=== PATIENT | female | born 1930 | race Caucasian/White ===

== ENCOUNTER → 2016-05-15 | Outpatient (CLI) | payer OTHER ==
[~2016-05-15] MED LIST: ANT25 PO; ASPI81TA28 PO; ATV5X PO; CEPH500C2 PO; CRD200 PO; FURO20TA PO; GLIP10TA10 PO; LEVO125T5 PO; LISI-461 PO; LPT40 PO; LSN5 PO; METF-384 PO; MRLP17 PO; MULT-506 PO; NRV5 PO; NTRGSL/4 UT; OMEP20CA9 PO; ONDA8TAB62 SL; POTA10CA28 PO; RIVA1TAB4 PO; TPRSR50 PO
--- NOTE | 2016-05-15 16:33 | MAMMOGRAPHY REPORT ---
BILATERAL DIGITAL SCREENING MAMMOGRAM WITH CAD: 05/15/2016 CLINICAL HISTORY: Routine screening examination. TECHNIQUE: Bilateral CC and MLO views were obtained. Current study was also evaluated with a Comput er Aided Detection (CAD) system. COMPARISON: Comparison is made to exams dated: 05/02/2015 mammogram, 10/02/2012 mammogram, 10/02/2011 mammogram, 09/29/2010 mammogram, 09/28/2009 mammogram - [facility], and 09/27/2008. BREAST COMPOSITION: There are scattered areas of fibroglandular density in both breasts. FINDINGS: There are diffuse bilateral rodlike secretory calcifications and moderate vascular calcifi cations in the breasts. No suspicious mass, architectural distortion or cluster of suspicious micro calcifications is seen. IMPRESSION: ACR BI-RADS CATEGORY 1: NEGATIVE There is no mammographic evidence of malignancy. A 1 year screening mammogram is recommended. The p atient will receive written notification of the results. Approximately 10% of breast cancers are not detected with mammography. A negative mammographic repor t should not delay biopsy if a clinically suggestive mass is present. Hellen Lara M.D. ay/:05/15/2016 15:02:56 Blasting Cap Assembler: Sandhya WARE)([place]), [facility] letter sent: Normal 1/2 BI-RADS Code: ACR BI-RADS Category 1: Negative
== END | disposition home or self-care (01) ==
LOC: C.MAMM 09:59
PROVIDERS: ATTEND Internal Medicine
DX: Z12.31 Encounter for screening mammogram for malignant neoplasm of breast (principal)

== ENCOUNTER → 2016-06-08 | Outpatient (CLI) | payer OTHER ==
[~2016-06-08] MED LIST changes: +LEVO125T4 PO; -LEVO125T5 PO
== END | disposition home or self-care (01) ==
LOC: C.LABSPEC 12:37
PROVIDERS: ATTEND Internal Medicine
DX: N39.0 Urinary tract infection, site not specified (principal)

== ENCOUNTER 2016-06-27 09:40 | Inpatient (IN) | payer OTHER ==
[~2016-06-27] VITALS: Ht 162.6 cm; Wt 85.0 kg
[~2016-06-27 09:40] MED LIST changes: -ANT25 PO; -CEPH500C2 PO; -FURO20TA PO; -LISI-461 PO; -MRLP17 PO; -NRV5 PO; -ONDA8TAB62 SL; -POTA10CA28 PO
[2016-06-27] MEDS ORDERED: ONDANSETRON INJ 2 MG/ML 2 ML VIAL IV STA (10:30)
[2016-06-27] MEDS ORDERED: ACETAMINOPHEN 325 MG TAB PO STA (10:30)
[2016-06-27 11:03] LABS: HEMATOCRIT 37.3 % (37-47); MEAN CELL VOLUME 95.6 fL (80-100); MEAN CORPUSCULAR HEMOGLOBIN 31.8 pg (25-34); MEAN CORPUSCULAR HGB CONC 33.2 g/dl (32-36); NEUT % 87.6 %; PLATELET COUNT 228 K/uL (130-400); WHITE BLOOD COUNT 12.62 K/uL (4.8-10.8)
[2016-06-27 11:04] LABS: BASO % 0.1 %; BASO ABS # 0.01 K/uL (0-0.2); COMPLETE YES; IG% 0.2 %; MONO % 8.1 %
--- NOTE | 2016-06-27 11:07 | DIAGNOSTIC IMAGING REPORT ---
CHEST ONE VIEW PORTABLE CLINICAL HISTORY: Sepsis. COMPARISON STUDY: Chest radiograph November 26, 2015. FINDINGS: Right shoulder arthroplasty is partially imaged. There is no pneumothorax or pleural effusion. Cardiomegaly is unchanged. There is no evidence of pulmonary edema. No consolidation is identified to suggest pneumonia. 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 IMPRESSION: No acute cardiopulmonary findings. Electronically signed by: Kenrick Gomez M.D. 06/27/2016 11:06 AM Dictated Date/Time: 06/27/2016 11:05 AM
[2016-06-27] MEDS ORDERED: LISI-461 PO ×3 (11:14→11:16)
[2016-06-27 11:17] LABS: INR 1.4 (0.9-1.1); PARTIAL THROMBOPLASTIN RATIO 1.3; PROTHROMBIN TIME (PATIENT) 14.7 SECONDS (9.0-12.0)
--- NOTE | 2016-06-27 11:27 | DIAGNOSTIC IMAGING REPORT ---
CT SCAN OF THE BRAIN WITHOUT IV CONTRAST CLINICAL HISTORY: Fall. COMPARISON STUDY: CT of the brain dated 08/10/2011. TECHNIQUE: Unenhanced axial CT scan of the brain is performed from the vertex to the skull base. CT DOSE: 537.48 mGy.cm FINDINGS: Brain parenchyma: There are age-related involutional changes noting moderate patchy subcortical and periventricular microangiopathic change. Chronic changes within the left parietal subcortical white matter are similar appearance to the 2012 examination. There is no hemorrhage, mass effect, or evidence of acute territorial ischemia by CT criteria. Mineralization is noted in the basal ganglia. Cobb-white matter is preserved. No extra-axial fluid collection is seen. Ventricles, sulci, cisterns: Prominent secondary to involutional change. Intracranial vasculature: There is atherosclerotic calcification of the cavernous carotid and vertebral arteries. Calvarium: The skeletal structures are osteopenic. There is no depressed calvarial fracture. Sinuses and mastoids: The visualized paranasal sinuses are clear. The mastoid air cells are well pneumatized. Orbits: The bony orbits are grossly intact. There are bilateral ocular lens implants. IMPRESSION: Senescent changes as above with no hemorrhage, mass effect, or evidence of acute territorial ischemia by CT criteria. Electronically signed by: Joe Lira M.D. 06/27/2016 11:25 AM Dictated Date/Time: 06/27/2016 11:22 AM
[2016-06-27 11:36] LABS: BUN/CREATININE RATIO 19.4 (10-20); CALCIUM 8.8 mg/dl (8.5-10.1); CREATININE 1.4 mg/dl (0.60-1.20); POTASSIUM 3.9 mmol/L (3.5-5.1)
[2016-06-27 11:41] LABS: ALB/GLOB RATIO 0.7 (0.9-2)
[2016-06-27] MEDS ORDERED: SODIUM CHLORIDE 0.9% 500ML 500 ML IV STA (11:49)
[2016-06-27 12:18] LABS: URINE APPEARANCE TURBID (CLEAR); URINE BILIRUBIN NEG (NEG); URINE COLOR DK YELLOW; URINE EPITHELIAL CELL AUTO >30 /lpf (0-5); URINE NITRITE NEG (NEG); URINE SPECIFIC GRAVITY 1.012 (1.000-1.030); UROBILINOGEN NEG (NEG); ZZURINE CULT IF INDIC CATH YES
[2016-06-27 12:19] LABS: MANUAL MICROSCOPIC REQUIRED? NO; REVIEW REQ? NO
[2016-06-27 12:55] LABS: THYROID STIMULATING HORMONE 3.19 uIu/ml (0.300-4.500)
[2016-06-27] MEDS ORDERED: SODIUM CHLORIDE 0.9% 1000ML 1,000 ML IV SCH (13:00)
[2016-06-27 13:20] VITALS: BP 138/76; PULSE 74; TEMP 37; O2SAT 96; Ht 162.6 cm; Wt 85.0 kg
[2016-06-27] MEDS ORDERED: CEFTRIAXONE SOD INJ 2,000 MG in DEXTROSE 5% 50ML 50 ML IV SCH (13:45)
[2016-06-27] MEDS ORDERED: GLUCOSE 40% GEL 15 GM TUBE PO PRN (14:00)
[2016-06-27] MEDS ORDERED: DEXTROSE 50% 50 ML SYR IV PRN (14:00)
[2016-06-27] MEDS ORDERED: GLUCAGON FOR INJ 1 MG VIAL SQ PRN (14:00)
[2016-06-27] MEDS ORDERED: GLUCOSE 10 TABS/TUBE PO PRN (14:00)
--- NOTE | 2016-06-27 14:12 | DIAGNOSTIC IMAGING REPORT ---
ULTRASOUND OF THE CAROTID ARTERIES CLINICAL HISTORY: Dizziness. COMPARISON STUDY: Carotid artery ultrasound dated 11/21/2005. TECHNIQUE: Real-time, grayscale, and color Doppler sonography of the carotid arteries is performed. Images are reviewed in the transverse and longitudinal planes. FINDINGS: Blood pressure in the right arm measures 109/57 and blood pressure in the left arm measures 106/54. The carotid arteries are patent bilaterally and demonstrate antegrade flow. There is mild atherosclerotic plaque seen in the carotid bulbs bilaterally. Normal doppler arterial waveforms are seen throughout. Velocity measurements are listed below. Common carotid peak systolic velocity (cm/sec): RIGHT: 53 LEFT: 65 ICA proximal peak systolic velocity (cm/sec): RIGHT: 49 LEFT: 45 ICA mid peak systolic velocity (cm/sec): RIGHT: 71 LEFT: 48 ICA distal peak systolic velocity (cm/sec): RIGHT: 67 LEFT: 72 ICA/CC peak systolic ratio: RIGHT: 1.3 LEFT: 1.1 Antegrade flow was shown in the vertebral arteries. The external carotid arteries are patent. IMPRESSION: 1. There is no sonographic evidence of hemodynamically significant stenosis in the right or left carotid arterial system. 2. Antegrade flow is shown in the vertebral arteries. Electronically signed by: Joe Lira M.D. 06/27/2016 2:11 PM Dictated Date/Time: 06/27/2016 2:10 PM
[2016-06-27 16:00] VITALS: O2SAT 92
[2016-06-27] MEDS: INSULIN ASPART 100 UNITS/ML 3 ML PEN SC SCH ×2 (17:21→20:58)
[2016-06-27] MEDS: ACETAMINOPHEN 500 MG TAB PO PRN ×2 (17:26→22:20)
[2016-06-27] MEDS: RIVAROXABAN 20 MG TAB PO SCH (17:26)
--- NOTE | 2016-06-27 18:16 | EMERGENCY ROOM VISIT NOTE ---
History Report prepared by Bhargav: [place] Under the Supervision of: Dr. Patel Llamas M.D. First contact with patient: 10:19 Chief Complaint: NAUSEA Stated Complaint: NAUSEA, CHILLS, CAN'T STAND, FALLING Nursing Triage Summary: Pt c/o nausea and dizziness x 3 months. Frequent falls, daughter states patient can't be home alone because she can't walk well anymore." Pt lives with her . Denies, abd pain, v/d, constipation. Fall last night, denies pain from fall. Denies hitting head. Pt daughter states she hasn't been eating well. Pt takes nausea pills. History of Present Illness The patient is an 85 year old female who presents to the Emergency Room with complaints of persistent nausea that started 2 days ago. Associated symptoms include fevers, chills, urinary frequency, and intermittent episodes of chest pain and shortness of breath. The patient describes this chest pain as "minor." Each episode of this chest pain with associated shortness of breath lasts around 1 minute. The patient's daughter mentions that the patient has been experiencing persistent weakness and dizziness for the past 3 months. She is unable to be home alone due to difficulty walking. She falls frequently. Her most recent fall was last night when she attempted to go to the bathroom on her own. She did hit her face during this fall. She denies a headache. The patient had a CT scan of her head performed in April which showed normal. A workup including a Holter Monitor was also performed in April which was normal. The patient denies abdominal pain, vomiting, diarrhea, rhinorrhea, congestion, or any signs of a rash. She does have a history of atrial fibrillation for which she takes Xarelto. Source of History: patient, family Onset: 2 days ago Position: other (Global ) Quality: other (fever) Timing: other (Persistent) Modifying Factors (Relieving): other (None) Associated Symptoms: + SOB, + chest pain, + chills, + fevers, + urinary symptoms, + weakness, No abdominal pain, No diarrhea, No headache, No vomiting Review of Systems See HPI for pertinent positives & negatives. A total of 10 systems reviewed and were otherwise negative. Past Medical & Surgical Medical Problems: (1) A.FIB,RVR,CHESTPAIN,CAD,DM2 (2) Hx of small bowel obstruction (3) UTI, ORTHOSTATIC HYPOTENSION, PAF,DM2 Family History Cancer FH: diabetes mellitus FH: hypertension FHx: thyroid disease Heart disease Social History Smoking Status: Never Smoker Alcohol Use: none Drug Use: none Marital Status: Housing Status: lives with significant other Occupation Status: retired Current/Historical Medications Scheduled Amiodarone HCl (Amiodarone HCl), 200 MG PO QD Aspirin (Aspirin Ec), 81 MG PO Q2D Atorvastatin (Atorvastatin Calcium), 40 MG PO HS Glipizide (Glipizide), 5 MG PO BID Levothyroxine Sodium (Levothyroxine Sodium), 125 MCG PO DAILY Lisinopril (Lisinopril), 1 TAB PO BID Multivitamin (Multivitamin), 1 TAB PO DAILY Nitroglycerin (Nitrostat), 0.4 MG UT PRN Rivaroxaban (Xarelto), 20 MG PO DAILY Scheduled PRN Lorazepam (Lorazepam), 0.5 MG PO BID PRN for Anxiety Allergies Coded Allergies: Adhesives (Verified Allergy, Mild, RASH, 06/27/16) Ciprofloxacin (Verified Allergy, Unknown, hives, 06/27/16) Penicillins (Verified Allergy, Unknown, HIVES, 06/27/16) HIVES Morphine (Verified Adverse Reaction, Intermediate, itching, 06/27/16) Physical Exam Vital Signs Date Time Temp Pulse Resp B/P Pulse Ox O2 Delivery O2 Flow Rate FiO2 06/27/16 13:33 71 06/27/16 13:20 37.0 74 20 138/76 96 Room Air 06/27/16 12:31 120/60 06/27/16 12:16 74 06/27/16 11:45 77 20 06/27/16 11:40 77 20 06/27/16 11:35 75 24 06/27/16 11:30 84 22 06/27/16 11:24 87/51 06/27/16 11:22 73 21 125/61 96 Room Air 75 112/52 77 87/51 06/27/16 10:52 92 Room Air 06/27/16 09:46 39.0 72 20 145/72 92 Room Air Physical Exam Constitutional: Vital signs reviewed. Eyes: Pupils are equal round reactive to light. Conjunctiva are noninjected. ENT: Pharynx is clear without erythema or exudate. Mucous membranes are dry. Neck supple without meningeal signs. Respiratory: Clear to auscultation bilaterally. Breath sounds are equal bilaterally. Cardiovascular: Regular rate and rhythm. No rubs or gallops. GI: Soft, nondistended and nontender. Bowel sounds are present. Musculoskeletal: No peripheral edema. Integumentary: No cyanosis. Neurological: The patient is awake and alert. Cranial nerves II-XII are intact. Motor is 5 out of 5 all extremities. Sensation is intact to light touch all extremities. Normal speech. No pronator drift. Psychiatric: Normal affect. Medical Decision & Procedures ER Provider Diagnostic Interpretation: CT results as stated below per interpretation by me and the radiologist: CT SCAN OF THE BRAIN WITHOUT IV CONTRAST CLINICAL HISTORY: Fall. COMPARISON STUDY: CT of the brain dated 08/10/2011. TECHNIQUE: Unenhanced axial CT scan of the brain is performed from the vertex to the skull base. CT DOSE: 537.48 mGy.cm FINDINGS: Brain parenchyma: There are age-related involutional changes noting moderate patchy subcortical and periventricular microangiopathic change. Chronic changes within the left parietal subcortical white matter are similar appearance to the 2012 examination. There is no hemorrhage, mass effect, or evidence of acute territorial ischemia by CT criteria. Mineralization is noted in the basal ganglia. Cobb-white matter is preserved. No extra-axial fluid collection is seen. Ventricles, sulci, cisterns: Prominent secondary to involutional change. Intracranial vasculature: There is atherosclerotic calcification of the cavernous carotid and vertebral arteries. Calvarium: The skeletal structures are osteopenic. There is no depressed calvarial fracture. Sinuses and mastoids: The visualized paranasal sinuses are clear. The mastoid air cells are well pneumatized. Orbits: The bony orbits are grossly intact. There are bilateral ocular lens implants. IMPRESSION: Senescent changes as above with no hemorrhage, mass effect, or evidence of acute territorial ischemia by CT criteria. Electronically signed by: Joe Lira M.D. 06/27/2016 11:25 AM Dictated Date/Time: 06/27/2016 11:22 AM X-ray results as stated below per interpretation by me and the radiologist: CHEST ONE VIEW PORTABLE CLINICAL HISTORY: Sepsis. COMPARISON STUDY: Chest radiograph November 26, 2015. FINDINGS: Right shoulder arthroplasty is partially imaged. There is no pneumothorax or pleural effusion. Cardiomegaly is unchanged. There is no evidence of pulmonary edema. No consolidation is identified to suggest pneumonia. 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 IMPRESSION: No acute cardiopulmonary findings. Electronically signed by: Kenrick Gomez M.D. 06/27/2016 11:06 AM Dictated Date/Time: 06/27/2016 11:05 AM Laboratory Results 06/27/16 10:45 Red Blood Count 3.90, Mean Corpuscular Volume 95.6, Mean Corpuscular Hemoglobin 31.8, Mean Corpuscular Hemoglobin Concent 33.2, Mean Platelet Volume 10.0, Neutrophils (%) (Auto) 87.6, Lymphocytes (%) (Auto) 4.0, Monocytes (%) (Auto) 8.1, Eosinophils (%) (Auto) 0.0, Basophils (%) (Auto) 0.1, Neutrophils # (Auto) 11.07, Lymphocytes # (Auto) 0.50, Monocytes # (Auto) 1.02, Eosinophils # (Auto) 0.00, Basophils # (Auto) 0.01 06/27/16 10:45 Test 06/27/16 10:45 06/27/16 10:49 06/27/16 11:20 06/27/16 11:25 White Blood Count 12.62 K/uL (4.8-10.8) Red Blood Count 3.90 M/uL (4.2-5.4) Hemoglobin 12.4 g/dL (12.0-16.0) Hematocrit 37.3 % (37-47) Mean Corpuscular Volume 95.6 fL (80-100) Mean Corpuscular Hemoglobin 31.8 pg (25-34) Mean Corpuscular Hemoglobin Concent 33.2 g/dl (32-36) Platelet Count 228 K/uL (130-400) Mean Platelet Volume 10.0 fL (7.4-10.4) Neutrophils (%) (Auto) 87.6 % Lymphocytes (%) (Auto) 4.0 % Monocytes (%) (Auto) 8.1 % Eosinophils (%) (Auto) 0.0 % Basophils (%) (Auto) 0.1 % Neutrophils # (Auto) 11.07 K/uL (1.4-6.5) Lymphocytes # (Auto) 0.50 K/uL (1.2-3.4) Monocytes # (Auto) 1.02 K/uL (0.11-0.59) Eosinophils # (Auto) 0.00 K/uL (0-0.5) Basophils # (Auto) 0.01 K/uL (0-0.2) RDW Standard Deviation 52.9 fL (36.4-46.3) RDW Coefficient of Variation 15.0 % (11.5-14.5) Immature Granulocyte % (Auto) 0.2 % Immature Granulocyte # (Auto) 0.02 K/uL (0.00-0.02) Prothrombin Time 14.7 SECONDS (9.0-12.0) Prothromb Time International Ratio 1.4 (0.9-1.1) Activated Partial Thromboplast Time 34.9 SECONDS (21.0-31.0) Partial Thromboplastin Ratio 1.3 Anion Gap 10.0 mmol/L (3-11) Est Creatinine Clear Calc Drug Dose 31.6 ml/min Estimated GFR () 39.9 Estimated GFR (Non- 34.4 BUN/Creatinine Ratio 19.4 (10-20) Calcium Level 8.8 mg/dl (8.5-10.1) Total Bilirubin 0.8 mg/dl (0.2-1) Aspartate Amino Transf (AST/SGOT) 25 U/L (15-37) Alanine Aminotransferase (ALT/SGPT) 33 U/L (12-78) Alkaline Phosphatase 83 U/L (45-117) Troponin I 0.020 ng/ml (0-0.045) Total Protein 6.7 gm/dl (6.4-8.2) Albumin 2.8 gm/dl (3.4-5.0) Globulin 3.9 gm/dl (2.5-4.0) Albumin/Globulin Ratio 0.7 (0.9-2) Thyroid Stimulating Hormone (TSH) 3.190 uIu/ml (0.300-4.500) Free Thyroxine 1.89 ng/dl (0.80-1.60) Bedside Lactic Acid Venous 1.54 mmol/L (0.90-1.70) Influenza Type A Antigen Neg for Influ A (NEG) Influenza Type B Antigen Neg for Influ B (NEG) Urine Color DK YELLOW Urine Appearance TURBID (CLEAR) Urine pH 5.0 (4.5-7.5) Urine Specific [place] 1.012 (1.000-1.030) Urine Protein 1+ (NEG) Urine Glucose (UA) NEG (NEG) Urine Ketones NEG (NEG) Urine Occult Blood 3+ (NEG) Urine Nitrite NEG (NEG) Urine Bilirubin NEG (NEG) Urine Urobilinogen NEG (NEG) Urine Leukocyte Esterase LARGE (NEG) Urine WBC (Auto) >30 /hpf (0-5) Urine RBC (Auto) 5-10 /hpf (0-4) Urine Hyaline Casts (Auto) 1-5 /lpf (0-5) Urine Epithelial Cells (Auto) >30 /lpf (0-5) Urine Bacteria (Auto) 4+ (NEG) Laboratory results as reviewed by me. Medications Administered Medications (Trade) Dose Ordered Sig/[place] Route Start Time Stop Time Status Last Admin Dose Admin Ondansetron HCl (Zofran Inj) 4 mg NOW STAT IV 06/27/16 10:30 06/27/16 10:34 DC 06/27/16 10:49 4 MG Acetaminophen 650 mg 650 mg NOW STAT PO 06/27/16 10:30 06/27/16 10:34 DC 06/27/16 10:49 650 MG Sodium Chloride 500 ml @ 999 mls/hr Q31M STAT IV 06/27/16 11:49 06/27/16 12:19 DC 06/27/16 12:18 999 MLS/HR Sodium Chloride 1,000 ml @ 100 mls/hr Q10H IV 06/27/16 13:00 07/27/16 12:59 06/27/16 14:35 100 MLS/HR Ceftriaxone Sodium/Dextrose (Rocephin Inj/D5 50ml) 70 ml @ 100 mls/hr TODAY@1345 IV 06/27/16 13:45 06/27/16 15:00 DC 06/27/16 15:21 100 MLS/HR Acetaminophen (Tylenol Tab) 500 mg Q4H PRN PO 06/27/16 13:30 07/27/16 13:29 06/27/16 17:26 500 MG ECG Indication: nausea Rate (beats per minute): 78 Rhythm: normal sinus Findings: no acute ischemic change, no ectopy ED Course 1022: The patient was evaluated in room B4. A complete history and physical exam was performed. 1030: Ordered Tylenol Tablet 650 mg PO, Zofran Injection 4 mg IV. 1149: Ordered Sodium Chloride 500 ml @ 999 mls/ hr IV. 1154: I reevaluated the patient and discussed her test results. The patient and her family are agreeable with the treatment plan at this time. 1234: I let the patient know about her urine results. The patient would like to go home but I will discuss the case with Dr. Andrade Lindsay ([facility]). 1243: I rechecked the patient's blood pressure. It is 120/60 at this time. 1250: I discussed the patient's case with Dr. Andrade Lindsay ([facility]). He will come in to evaluate the patient for further management and care. 1253: I update the patient and her family of the treatment plan. They are agreeable at this time. Medical Decision This is an 85-year-old female who presents with fever, head injury and generalized weakness. Differential diagnosis includes UTI, sepsis, pneumonia, intracranial hemorrhage, concussion, anemia, dehydration. I did perform a limited focused review of portions of the patient's old chart on the electronic medical record. The patient wore a Halter Monitor in April of last year which showed sinus rhythm and HR 55. Rare PVC. No arrhythmia. MRI of brain was also performed on May 08 which was negative for acute abnormality. I did evaluate the patient as noted above. The patient is presenting with a head injury. She denies headache but she is on Xarelto. She also complains of a fever and urinary frequency. She has also been weak and unsteady on her feet since March and has had a significant workup for this including MRI of the brain and a Holter monitor. IV access was established. The patient was placed on a continuous cardiology physician assistant. Orthostatic vital signs were obtained. She does have significant orthostatic hypotension which may explain the patient's dizziness on standing for the past several months. Her daughter states that she has not been eating or drinking very much recently. I did order and personally review the patient's 12-lead EKG and chest x-ray as described above. I did order and review the patient's blood work as noted in the electronic medical record. She does have an elevated creatinine and BUN which goes along with her dehydration and diminished by mouth intake. I did order a CT of the head. I did review the images myself as well as the radiology report as described above. There is no evidence of intracranial hemorrhage. The patient was treated with IV normal saline. Her blood pressure did improve. Urinalysis was obtained which does show signs of infection. Previous urine culture showed pansensitive Escherichia coli in the past. I did discuss the case with Dr. Lema who will assess the patient here for hospitalization. Consults Time Called: 1235 Consulting Physician: Dr. Andrade Lindsay ([facility]) Returned Call: 1250 I discussed the patient's case with Dr. Andrade Lindsay ([facility]) . He will come in to evaluate the patient for further management and care. Impression Primary Impression: Febrile illness Additional Impressions: UTI (urinary tract infection) Acute head injury Fall Anticoagulated Orthostatic hypotension Dehydration Scribe Attestation The scribe's documentation has been prepared under my direct and personally reviewed by me in its entirety. I confirm that the note above accurately reflects all work, treatment, procedures, and medical decision making performed by me. Departure Information Dispostion Being Evaluated By Hospitalist Referrals Dell Madrigal M.D. (PCP) Patient Instructions My [facility] Problem Qualifiers
[2016-06-27 19:59] VITALS: BP 134/72; PULSE 67; TEMP 37.1; O2SAT 90
[2016-06-27] MEDS: D5W AND NSS 1,000 ML IV SCH (20:58)
[2016-06-27] MEDS: MECLIZINE HCL 12.5 MG TAB PO SCH (20:59)
[2016-06-27] MEDS: ATORVASTATIN 40 MG TAB PO SCH (20:59)
[2016-06-27] MEDS: LORAZEPAM 0.5 MG TAB PO PRN (21:00)
[2016-06-27 22:20] VITALS: TEMP 37.9
[2016-06-27 23:12] VITALS: BP 145/68; PULSE 87; TEMP 37; O2SAT 93
[2016-06-27] MEDS: ONDANSETRON INJ 8 MG in DEXTROSE 5% 50ML 50 ML IV PRN (23:50)
[2016-06-28] VITALS (7 sets, daily range): BP systolic 104–160; BP diastolic 63–85; PULSE 62–73; TEMP 36.7–37.9; O2SAT 90–95
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
[2016-06-28] MEDS: D5W AND NSS 1,000 ML IV SCH (05:52)
[2016-06-28] MEDS: ACETAMINOPHEN 500 MG TAB PO PRN ×2 (05:54→16:10)
[2016-06-28 06:18] LABS: BASO % 0.1 %; BASO ABS # 0.01 K/uL (0-0.2); COMPLETE YES; HEMATOCRIT 37.4 % (37-47); IG% 0.3 %; LYMPH % 9.9 %; LYMPH ABS # 1.39 K/uL (1.2-3.4); MEAN CELL VOLUME 96.4 fL (80-100); MEAN CORPUSCULAR HEMOGLOBIN 31.4 pg (25-34); MEAN CORPUSCULAR HGB CONC 32.6 g/dl (32-36); MEAN PLATELET VOLUME 10.1 fL (7.4-10.4); MONO % 7.3 %; NEUT % 82.4 %; PLATELET COUNT 226 K/uL (130-400); RED BLOOD COUNT 3.88 M/uL (4.2-5.4); WHITE BLOOD COUNT 13.99 K/uL (4.8-10.8)
[2016-06-28] MEDS: LEVOTHYROXINE 112 MCG TAB PO SCH (06:19)
[2016-06-28 07:04] LABS: BUN/CREATININE RATIO 20.1 (10-20); CALCIUM 8.4 mg/dl (8.5-10.1); CREATININE 1.6 mg/dl (0.60-1.20); POTASSIUM 4.3 mmol/L (3.5-5.1)
--- NOTE | 2016-06-28 07:05 | Clinical Documentation Query ---
[facility]INICAL DOCUMENTATION QUERY Patient is an 85 year old female admitted with multiple medical problems including a UTI and "acute renal insufficiency" secondary to dehydration. Unfortunately, "acute renal insufficiency" necessarily assigns a code for an unspecified disorder of the kidney. This neither assumes the severity of illness or encompasses the risk of mortality associated with RON or acute renal failure. As appropriate, please specify as suggested below as this directly impacts DRG assignment. Thank you. In your clinical opinion is this patient being managed for: ( x ) Acute kidney failure secondary to dehydration ( ) Other explanation of clinical findings (Please Explain) ( ) Unable to determine (Please Define) ( ) Need to Discuss ( ) Not Agree The medical record reflects the following clinical findings, treatment, and risk factors. Clinical Indicators: As above Treatment: IVF, serial chemistries Risk Factors: Age, infection, poor intake Please clarify and document your clinical opinion in the progress notes and discharge summary. Terms such as "probable", "suspected", "likely", "questionable", "possible", or "still to be ruled out" are acceptable. IF IN AGREEMENT, YOU MUST DOCUMENT ABOVE DIAGNOSTIC STATEMENT IN DAILY PROGRESS NOTES AND DISCHARGE SUMMARY. This document is not part of the patient's record. Thank You, Diallo Mistry, RN [phone]
[2016-06-28] MEDS: INSULIN ASPART 100 UNITS/ML 3 ML PEN SC SCH ×4 (08:38→20:39)
[2016-06-28] MEDS: SODIUM CHLORIDE 0.9% 1000ML 1,000 ML IV SCH ×2 (08:42→19:35)
[2016-06-28] MEDS: AMIODARONE 200 MG TAB PO SCH (08:44)
[2016-06-28] MEDS: MECLIZINE HCL 12.5 MG TAB PO SCH ×3 (08:44→20:34)
[2016-06-28] MEDS: ASPIRIN 81 MG ECTAB PO SCH (08:45)
[2016-06-28] MEDS: POLYETHYLENE (MIRALAX) 17 GM PACK PO SCH (08:46)
[2016-06-28] MEDS: MULTIVITAMIN TAB PO SCH (08:49)
[2016-06-28] MEDS ORDERED: LEVOTHYROXINE 125 MCG TAB PO SCH (09:00)
[2016-06-28] MEDS: ONDANSETRON INJ 8 MG in DEXTROSE 5% 50ML 50 ML IV PRN ×3 (09:39→20:35)
[2016-06-28] MEDS: CEFTRIAXONE SOD INJ 2,000 MG in DEXTROSE 5% 50ML 50 ML IV SCH (12:29)
[2016-06-28] MEDS: RIVAROXABAN 20 MG TAB PO SCH (18:20)
[2016-06-28] MEDS: LORAZEPAM 0.5 MG TAB PO PRN (20:34)
[2016-06-28] MEDS: ATORVASTATIN 40 MG TAB PO SCH (20:34)
--- NOTE | 2016-06-28 21:55 | PROGRESS NOTE ---
DATE: 06/28/2016 An 85-year-old female admitted with urinary tract infection, fever and chills, generalized weakness and orthostatic hypotension. She does have coronary artery disease, paroxysmal atrial fibrillation, type 2 diabetes mellitus and arterial hypertension. The patient was admitted. Cultures were done. She was started on IV Rocephin. Her urine culture is growing gram negative bacilli identified as E. coli. Both blood cultures were also positive for gram negative bacilli. Final identification is pending. During the day today, the patient remains afebrile. Her condition has improved. Last night her blood did drop down and I did give her IV solution with D5 normal saline. She is still feeling weak and tired. She has no headache. No dizziness. No chest pain, no shortness of breath. No abdominal pain, no nausea, no vomiting. No problem with her bowel movements. No diarrhea. No urinary problem. No pain in her back or extremities. PHYSICAL EXAMINATION: GENERAL: Well-developed, in no distress. VITAL SIGNS: Blood pressure 104/63, pulse 73, respirations 18, temperature 37.5 and oxygen saturation 93% on room air. SKIN: Warm and dry. No rash. HEENT: She usually wears glasses. No mucosal abnormality. NECK: No JVD, no adenopathy. She does have bilateral carotid bruits. HEART: Regular heart sounds with 2/6 systolic murmur. LUNGS: Clear. ABDOMEN: Soft, nontender. No organomegaly or masses. BACK: No spinal tenderness. EXTREMITIES: No edema, clubbing or cyanosis. Osteoarthritic changes. TODAY'S LABORATORY TESTS: WBC count 13,990, hemoglobin 12.2, hematocrit 37.4, platelet count 226,000. Sodium 139, potassium 4.3, chloride 104, CO2 25, BUN 32, creatinine 1.6, glucose 108, calcium 8.4. As noted, her urine culture is growing E. coli. Both blood cultures are positive for gram negative bacilli. ASSESSMENT: 1. Sepsis. 2. Urinary tract infection. 3. Dehydration. 4. Acute renal failure related to her dehydration and acute illness. 5. Coronary artery disease. 6. Paroxysmal atrial fibrillation. 7. Type 2 diabetes mellitus. PLAN: 1. Continuing the same medications. 2. Physical and occupational therapy ordered. 3. We will wait for the final culture results and decide on changing her antibiotic if indicated. 4. Continue IV fluids with normal saline at 100 mL per hour.
[2016-06-29] VITALS (10 sets, daily range): BP systolic 142–183; BP diastolic 69–90; PULSE 59–76; TEMP 36.3–37.8; O2SAT 90–97
[2016-06-29] MEDS: LEVOTHYROXINE 112 MCG TAB PO SCH (06:18)
[2016-06-29] MEDS: SODIUM CHLORIDE 0.9% 1000ML 1,000 ML IV SCH ×3 (06:19→23:45)
[2016-06-29 06:40] LABS: BASO % 0.1 %; BASO ABS # 0.01 K/uL (0-0.2); COMPLETE YES; EOS % 0.8 %; HEMATOCRIT 34.4 % (37-47); IG% 0.3 %; LYMPH % 9.8 %; LYMPH ABS # 0.74 K/uL (1.2-3.4); MEAN CELL VOLUME 98.6 fL (80-100); MEAN CORPUSCULAR HEMOGLOBIN 32.1 pg (25-34); MEAN CORPUSCULAR HGB CONC 32.6 g/dl (32-36); MEAN PLATELET VOLUME 10.2 fL (7.4-10.4); MONO % 8.5 %; NEUT % 80.5 %; PLATELET COUNT 222 K/uL (130-400); RED BLOOD COUNT 3.49 M/uL (4.2-5.4); WHITE BLOOD COUNT 7.56 K/uL (4.8-10.8)
[2016-06-29 07:12] LABS: BUN/CREATININE RATIO 19.9 (10-20); CALCIUM 8.2 mg/dl (8.5-10.1); CREATININE 1.3 mg/dl (0.60-1.20); POTASSIUM 4.6 mmol/L (3.5-5.1)
[2016-06-29] MEDS: AMIODARONE 200 MG TAB PO SCH (07:38)
[2016-06-29] MEDS: MULTIVITAMIN TAB PO SCH (07:38)
[2016-06-29] MEDS: POLYETHYLENE (MIRALAX) 17 GM PACK PO SCH (07:38)
[2016-06-29] MEDS: MECLIZINE HCL 12.5 MG TAB PO SCH ×3 (07:38→20:48)
[2016-06-29] MEDS: INSULIN ASPART 100 UNITS/ML 3 ML PEN SC SCH ×4 (08:35→20:57)
[2016-06-29] MEDS: CEFTRIAXONE SOD INJ 2,000 MG in DEXTROSE 5% 50ML 50 ML IV SCH (12:31)
[2016-06-29] MEDS: RIVAROXABAN 20 MG TAB PO SCH (18:02)
--- NOTE | 2016-06-29 19:18 | PROGRESS NOTE ---
DATE: 06/29/2016 An 85-year-old female admitted with multiple medical problems including fever and chills and evidence of urinary tract infection, dehydration and orthostatic hypotension. The patient was admitted. Cultures were done. Both her urine culture and 2 blood cultures are growing E. coli. She is on IV Rocephin. Overall, her condition is improved. Tonight, she was sitting at her bedside. She denied any headache or dizziness. No chest pain, no shortness of breath. No abdominal pain, nausea or vomiting. She is tolerating her diet quite well. No problem with her bowel movements. No problem urinating. PHYSICAL EXAMINATION: GENERAL: Well developed in no distress. VITAL SIGNS: Blood pressure 142/90, pulse 76, respirations 28, temperature 37.8, oxygen saturation 93%. SKIN: Warm and dry. No rash. HEENT: No mucosal abnormalities. NECK: No JVD. No adenopathy. HEART: Regular heart sounds with 2/6 systolic murmur. LUNGS: Clear. ABDOMEN: Soft, nontender. BACK: No spinal tenderness. EXTREMITIES: No edema, clubbing, or cyanosis. LABORATORY TESTS: WBC count 7560, hemoglobin 11.2, hematocrit 34.4, platelet count 222,000. Sodium 142, potassium 4.6, chloride 108, CO2 25, BUN 26, creatinine 1.3, glucose 97, calcium 8.2. As noted, her cultures are growing E. coli, sensitive to Rocephin. ASSESSMENT: 1. Sepsis. 2. Urinary tract infection. 3. Dehydration. 4. Orthostatic hypotension. 5. Coronary artery disease. 6. Paroxysmal atrial fibrillation. 7. Type 2 diabetes mellitus. 8. Arterial hypertension. 9. Hypothyroidism. PLAN: 1. Her condition is improving. 2. Will continue IV Rocephin for a total of 5 days, then we will switch her to oral antibiotics. 3. Will increase her activity tomorrow. 4. Physical and occupational therapy evaluation. Apparently she did quite well with the physical therapist today.
[2016-06-29] MEDS: ATORVASTATIN 40 MG TAB PO SCH (20:48)
[2016-06-29] MEDS: LORAZEPAM 0.5 MG TAB PO PRN (20:57)
[2016-06-30] MEDS: LEVOTHYROXINE 112 MCG TAB PO SCH (05:52)
[2016-06-30 06:29] LABS: BASO % 0.3 %; BASO ABS # 0.02 K/uL (0-0.2); COMPLETE YES; EOS % 2.4 %; HEMATOCRIT 34.6 % (37-47); IG% 0.1 %; LYMPH % 15.4 %; LYMPH ABS # 1.21 K/uL (1.2-3.4); MEAN CORPUSCULAR HGB CONC 32.7 g/dl (32-36); MEAN PLATELET VOLUME 10.1 fL (7.4-10.4); MONO % 10.8 %; PLATELET COUNT 252 K/uL (130-400); RED BLOOD COUNT 3.53 M/uL (4.2-5.4); WHITE BLOOD COUNT 7.86 K/uL (4.8-10.8)
[2016-06-30 07:03] LABS: BUN/CREATININE RATIO 20.3 (10-20); CALCIUM 8.5 mg/dl (8.5-10.1); POTASSIUM 4.5 mmol/L (3.5-5.1)
[2016-06-30 07:19] VITALS: BP 155/74; PULSE 78; TEMP 36.7; O2SAT 95
[2016-06-30] MEDS: AMIODARONE 200 MG TAB PO SCH (07:25)
[2016-06-30] MEDS: MULTIVITAMIN TAB PO SCH (07:25)
[2016-06-30] MEDS: MECLIZINE HCL 12.5 MG TAB PO SCH ×3 (07:26→22:02)
[2016-06-30] MEDS: ASPIRIN 81 MG ECTAB PO SCH (07:26)
[2016-06-30] MEDS: POLYETHYLENE (MIRALAX) 17 GM PACK PO SCH (07:26)
[2016-06-30] MEDS: INSULIN ASPART 100 UNITS/ML 3 ML PEN SC SCH ×4 (08:39→22:08)
[2016-06-30] MEDS: CEFTRIAXONE SOD INJ 2,000 MG in DEXTROSE 5% 50ML 50 ML IV SCH (13:33)
[2016-06-30 15:31] VITALS: BP 180/82; PULSE 58; TEMP 36.6; O2SAT 96
[2016-06-30 16:10] VITALS: O2SAT 96
[2016-06-30 17:53] VITALS: BP 182/85; PULSE 80
[2016-06-30] MEDS ORDERED: HydrALAZINE HCL 20 MG/ML VIAL IV. STA (18:00)
--- NOTE | 2016-06-30 18:07 | PROGRESS NOTE ---
DATE: 06/30/2016 An 85-year-old female, admitted with urinary tract infection with fever and chills. Her blood cultures did grow E. coli. Her urine culture is also growing E. coli. Her medical problems include coronary artery disease, atrial fibrillation, arterial hypertension, type 2 diabetes mellitus and osteoarthritis. The patient was started on IV Rocephin. The E. coli was sensitive to the Rocephin. She became afebrile. She had no fever or chills. Her condition has improved. She is not feeling dizzy or lightheaded. No chest pain, no shortness of breath. She denied any abdominal pain. No nausea, no vomiting. No problem urinating. No pain in her back or extremities. PHYSICAL EXAMINATION: GENERAL: Well-developed, in no distress. VITAL SIGNS: Blood pressure 155/74, pulse 78, respirations 16, temperature 36.7 and oxygen saturation 95% on room air. SKIN: Warm and dry. No rash. HEENT: Unremarkable. NECK: No JVD. No adenopathy. HEART: Regular heart sounds with 2/6 systolic murmur. LUNGS: Clear. ABDOMEN: Soft and nontender. BACK: No spinal tenderness. EXTREMITIES: Osteoarthritic changes. No edema, clubbing or cyanosis. TODAY'S LABORATORY TESTS: WBC count 7860, hemoglobin 11.3, hematocrit 34.6 and platelet count 252,000. Sodium 142, potassium 4.5, chloride 109, CO2 23, BUN 20, creatinine 1.0, glucose 112 and calcium 8.4. ASSESSMENT: 1. Urosepsis. 2. Coronary artery disease. 3. Arterial hypertension. 4. Osteoarthritis. 5. Type 2 diabetes mellitus. PLAN: 1. Overall, her condition has improved. 2. Continuing IV antibiotics for a total of 5 days. 3. She is doing well, getting out of bed and ambulating. 4. Anticipate that she will be able to return home after her acute hospitalization.
[2016-06-30] MEDS: RIVAROXABAN 20 MG TAB PO SCH (18:14)
[2016-06-30] MEDS: LISINOPRIL 10 MG TAB PO SCH (22:01)
[2016-06-30] MEDS: ATORVASTATIN 40 MG TAB PO SCH (22:01)
[2016-07-01] VITALS (12 sets, daily range): BP systolic 132–195; BP diastolic 68–89; PULSE 71–84; TEMP 36.7–37.1; O2SAT 92–96
[2016-07-01] MEDS: HydrALAZINE HCL 20 MG/ML VIAL IV. PRN ×3 (01:27→16:33)
[2016-07-01] MEDS: LEVOTHYROXINE 112 MCG TAB PO SCH (06:11)
[2016-07-01] MEDS: ACETAMINOPHEN 500 MG TAB PO PRN (06:14)
[2016-07-01 06:34] LABS: BASO % 0.2 %; BASO ABS # 0.02 K/uL (0-0.2); COMPLETE YES; EOS % 2.2 %; IG% 0.4 %; LYMPH % 18.1 %; LYMPH ABS # 1.55 K/uL (1.2-3.4); MEAN CELL VOLUME 97.9 fL (80-100); MEAN CORPUSCULAR HEMOGLOBIN 31.7 pg (25-34); MEAN CORPUSCULAR HGB CONC 32.4 g/dl (32-36); MEAN PLATELET VOLUME 9.9 fL (7.4-10.4); MONO % 8.8 %; NEUT % 70.3 %; PLATELET COUNT 333 K/uL (130-400); RED BLOOD COUNT 3.88 M/uL (4.2-5.4); WHITE BLOOD COUNT 8.56 K/uL (4.8-10.8)
[2016-07-01 07:02] LABS: BUN/CREATININE RATIO 16.1 (10-20); CALCIUM 8.9 mg/dl (8.5-10.1); CREATININE 1.1 mg/dl (0.60-1.20); POTASSIUM 4.4 mmol/L (3.5-5.1)
[2016-07-01] MEDS: AMIODARONE 200 MG TAB PO SCH (07:44)
[2016-07-01] MEDS: MULTIVITAMIN TAB PO SCH (07:44)
[2016-07-01] MEDS: MECLIZINE HCL 12.5 MG TAB PO SCH ×3 (07:44→21:29)
[2016-07-01] MEDS: LISINOPRIL 10 MG TAB PO SCH ×2 (07:44→21:28)
[2016-07-01] MEDS: POLYETHYLENE (MIRALAX) 17 GM PACK PO SCH (07:44)
[2016-07-01] MEDS: INSULIN ASPART 100 UNITS/ML 3 ML PEN SC SCH ×4 (08:48→21:00)
[2016-07-01] MEDS ORDERED: AMLODIPINE BESYLATE 5 MG TAB PO ONE (09:00)
[2016-07-01] MEDS ORDERED: LORAZEPAM 0.5 MG TAB PO STA (10:08)
[2016-07-01] MEDS: CEFTRIAXONE SOD INJ 2,000 MG in DEXTROSE 5% 50ML 50 ML IV SCH (13:39)
[2016-07-01] MEDS: ONDANSETRON INJ 8 MG in DEXTROSE 5% 50ML 50 ML IV PRN (17:25)
[2016-07-01] MEDS: RIVAROXABAN 20 MG TAB PO SCH (17:25)
[2016-07-01] MEDS: LORAZEPAM 0.5 MG TAB PO SCH (21:27)
[2016-07-01] MEDS: ATORVASTATIN 40 MG TAB PO SCH (21:28)
--- NOTE | 2016-07-01 21:35 | PROGRESS NOTE ---
DATE: 07/01/2016 SUBJECTIVE: An 85-year-old female admitted with fevers, chills and orthostatic hypotension. She had a urinary tract infection secondary to E. coli and also her 2 blood cultures grew E. coli. Her medical problems also include coronary artery disease, paroxysmal atrial fibrillation, type 2 diabetes mellitus, arterial hypertension. The patient remains afebrile. Her blood pressure has been elevated. Once she was admitted because of her hypotension, I discontinued her antihypertensive medications and reintroduced them as needed. Denied any headache. No dizziness. She is getting out of bed and walking in her room to the bathroom without any problem. Denied any chest pain. No shortness of breath. No abdominal pain, no nausea, no vomiting. She did have a bowel movement. No urinary problem. No pain in her back or extremities. PHYSICAL EXAMINATION: GENERAL: Well developed in no distress. VITAL SIGNS: Blood pressure 175/89, pulse 84, respirations 20, temperature 36.7, oxygen saturation 95% on room air. SKIN: Warm and dry. No rash. HEENT: She does wear glasses. NECK: No JVD, no adenopathy. HEART: Regular heart sounds with a 2/6 systolic murmur. LUNGS: Clear. ABDOMEN: Soft, nontender. EXTREMITIES: No edema, clubbing, or cyanosis. LABORATORY TESTS: Today's laboratory tests WBC count 8560, hemoglobin 12.3, hematocrit 38%, platelet count 333,000. Sodium 142, potassium 4.4, chloride 106, CO2 of 27, BUN 18, creatinine 1.1, glucose 134, calcium 8.9. ASSESSMENT: 1. Sepsis secondary to Escherichia coli. The source is a urinary tract infection. 2. Arterial hypertension. 3. Coronary artery disease. 4. Type 2 diabetes mellitus. 5. Paroxysmal atrial fibrillation. PLAN: 1. I gave her hydralazine IV. 2. Started her on amlodipine. 3. Her lisinopril has been restarted. 4. Continue with physical and occupational therapy. 5. She becomes very anxious and worried so, I put her on lorazepam orally. 6. We will see how she is doing in the morning. The intent is for her to go back home after her acute hospitalization. AMAYA
[2016-07-02 00:31] VITALS: BP 154/75; PULSE 92; TEMP 36.6; O2SAT 91
[2016-07-02] MEDS: LEVOTHYROXINE 112 MCG TAB PO SCH (05:54)
[2016-07-02 06:20] LABS: BASO % 0.3 %; BASO ABS # 0.02 K/uL (0-0.2); COMPLETE YES; EOS % 2.2 %; HEMATOCRIT 33.5 % (37-47); IG% 0.1 %; LYMPH % 17.5 %; LYMPH ABS # 1.35 K/uL (1.2-3.4); MEAN CORPUSCULAR HEMOGLOBIN 31.2 pg (25-34); MEAN CORPUSCULAR HGB CONC 32.5 g/dl (32-36); MEAN PLATELET VOLUME 9.4 fL (7.4-10.4); MONO % 10.1 %; NEUT % 69.8 %; PLATELET COUNT 321 K/uL (130-400); RED BLOOD COUNT 3.49 M/uL (4.2-5.4); WHITE BLOOD COUNT 7.73 K/uL (4.8-10.8)
[2016-07-02 06:48] LABS: BUN/CREATININE RATIO 13.1 (10-20); CALCIUM 8.4 mg/dl (8.5-10.1); POTASSIUM 4.2 mmol/L (3.5-5.1)
[2016-07-02 07:44] VITALS: BP 160/80; PULSE 99; TEMP 36.7; O2SAT 93
[2016-07-02] MEDS: INSULIN ASPART 100 UNITS/ML 3 ML PEN SC SCH ×4 (07:58→20:52)
[2016-07-02] MEDS: MECLIZINE HCL 12.5 MG TAB PO SCH ×3 (07:59→20:50)
[2016-07-02] MEDS: ASPIRIN 81 MG ECTAB PO SCH (07:59)
[2016-07-02] MEDS: POLYETHYLENE (MIRALAX) 17 GM PACK PO SCH ×2 (08:00→08:02)
[2016-07-02] MEDS: AMLODIPINE BESYLATE 5 MG TAB PO SCH (08:00)
[2016-07-02] MEDS: MULTIVITAMIN TAB PO SCH (08:00)
[2016-07-02] MEDS: LISINOPRIL 10 MG TAB PO SCH ×2 (08:00→20:50)
[2016-07-02] MEDS: AMIODARONE 200 MG TAB PO SCH (08:00)
[2016-07-02] MEDS: LORAZEPAM 0.5 MG TAB PO SCH ×2 (08:02→20:50)
[2016-07-02] MEDS: CEFTRIAXONE SOD INJ 2,000 MG in DEXTROSE 5% 50ML 50 ML IV SCH (13:37)
[2016-07-02 15:33] VITALS: BP 158/79; PULSE 70; TEMP 36.8; O2SAT 93
[2016-07-02 16:00] VITALS: O2SAT 93
[2016-07-02] MEDS: RIVAROXABAN 20 MG TAB PO SCH (17:45)
[2016-07-02] MEDS: ATORVASTATIN 40 MG TAB PO SCH (20:50)
--- NOTE | 2016-07-02 22:52 | PROGRESS NOTE ---
DATE: 07/02/2016 An 85-year-old female, with multiple medical problems includin. Urinary tract infection. 2. Sepsis. 3. Coronary artery disease. 4. Arterial hypertension. 5. Type 2 diabetes mellitus. Her cultures did grow E. coli, both in the urine and her blood cultures. Sensitive to ceftriaxone. Her condition has improved. She denied any headache, dizziness or lightheadedness. No chest pain, no shortness of breath. No abdominal pain, no nausea, no vomiting. No problem with her bowel movements. No problem urinating. No ankle edema. PHYSICAL EXAMINATION: GENERAL: Well-developed, in no distress. VITAL SIGNS: Blood pressure 160/80, pulse 99, respirations 20, temperature 36.7 and oxygen saturation 93% on room air. SKIN: Warm and dry. No rash. HEENT: No mucosal abnormalities. NECK: No JVD. No adenopathy. Scar from prior carotid endarterectomy. Bilateral carotid bruits. HEART: Regular heart sounds with 2/6 systolic murmur. LUNGS: Clear. ABDOMEN: Soft and nontender. BACK: No spinal tenderness. EXTREMITIES: No edema, clubbing or cyanosis. TODAY'S LABORATORY TESTS: WBC count 7730, hemoglobin 10.9, hematocrit 33.5 and platelet count 321,000. Sodium 143, potassium 4.2, chloride 107, CO2 28, BUN 13, creatinine 1.0, glucose 125 and calcium 8.4. ASSESSMENT: 1. Sepsis, secondary to urinary tract infection; both urine and blood cultures were positive for Escherichia. coli. 2. Coronary artery disease. 3. Type 2 diabetes mellitus. 4. Arterial hypertension. PLAN: 1. Her condition has markedly improved. 2. She is ambulating, tolerating her diet. 3. I intend to switch her to oral cephalexin. 4. If her condition remains stable, she would receive a 5-day course of IV Rocephin and I plan on discharging her tomorrow morning.
[2016-07-02 23:35] VITALS: BP 147/71; PULSE 76; TEMP 36.9; O2SAT 94
[2016-07-03] VITALS: O2SAT 94
[2016-07-03] MEDS: LEVOTHYROXINE 112 MCG TAB PO SCH (06:28)
[2016-07-03 07:20] VITALS: BP 169/77; PULSE 79; TEMP 36.4; O2SAT 94
[2016-07-03] MEDS: LORAZEPAM 0.5 MG TAB PO SCH (07:49)
[2016-07-03] MEDS: MECLIZINE HCL 12.5 MG TAB PO SCH (07:49)
[2016-07-03] MEDS: AMIODARONE 200 MG TAB PO SCH (07:49)
[2016-07-03] MEDS: LISINOPRIL 10 MG TAB PO SCH (07:50)
[2016-07-03] MEDS: MULTIVITAMIN TAB PO SCH (07:50)
[2016-07-03] MEDS: POLYETHYLENE (MIRALAX) 17 GM PACK PO SCH (07:50)
[2016-07-03] MEDS: AMLODIPINE BESYLATE 5 MG TAB PO SCH (07:50)
[2016-07-03] MEDS: INSULIN ASPART 100 UNITS/ML 3 ML PEN SC SCH (07:54)
[2016-07-03] MEDS ORDERED: ONDA8TAB62 SL ×2 (07:58)
[2016-07-03] MEDS ORDERED: FURO20TA PO ×2 (07:58)
[2016-07-03] MEDS ORDERED: CEPH500C2 PO ×2 (07:58)
[2016-07-03] MEDS ORDERED: POTA10CA28 PO (07:58)
[2016-07-03] MEDS ORDERED: ANT25 PO ×2 (07:58)
[2016-07-03] MEDS ORDERED: MRLP17 PO ×2 (07:58)
[2016-07-03] MEDS ORDERED: NRV5 PO ×2 (07:58)
--- NOTE | 2016-07-03 08:01 | Discharge Instructions ---
Discharge Instructions Admission Reason for Admission: Uti Orthostatic Hypotension Paf Dm2 Discharge Discharge Diagnosis / Problem: BACTEREMIA, URINARY TRACT INFECTION,DEHYDRATION, CORONARY ARTERY DISEASE Discharge Goals Goal(s): Decrease discomfort, Improve function, Increase independence, Improve disease control Activity Recommendations Activity Limitations: resume your previous activity . Instructions / Follow-Up Instructions / Follow-Up DR [place] IN ONE WEEK Current Hospital Diet Patient's current hospital diet: Low Sodium Diet (2gm Na), Diabetes Type 2 Diet Discharge Diet Recommended Diet: Diabetes Type 2 Diet Pending Studies Studies pending at discharge: no Medical Emergencies . Who to Call and When: Medical Emergencies: If at any time you feel your situation is an emergency, please call 911 immediately. . Non-Emergent Contact Non-Emergency issues call your: Primary Care Provider . . "Provider Documentation" section prepared by Dell Lema. VTE Core Measure Inpt VTE Proph given/why not?: Other Anticoagulation
[2016-07-03 08:56] VITALS: BP 169/77; PULSE 79; TEMP 36.4; O2SAT 94
--- NOTE | 2016-07-04 00:37 | PROGRESS NOTE ---
DATE: 07/03/2016 An 85-year-old female admitted with fever and chills and urinary tract infections. Subsequently, she had 2 positive blood cultures for E. coli. Her medical problems include type 2 diabetes mellitus, arterial hypertension, paroxysmal atrial fibrillation. The patient has been doing quite well. She remains afebrile. She denied any headache or dizziness. Her blood pressure was fluctuating. Her medications have been adjusted. Initially, she was hypotensive at the time of her admission because of her infection and bacteremia. Denied any chest pain, no shortness of breath. No abdominal pain, no nausea, no vomiting. No problem with her bowel movements. No problem urinating. She has developed some bilateral leg edema. PHYSICAL EXAMINATION: GENERAL: Well developed, in no distress. VITAL SIGNS: Blood pressure 169/77, pulse 79, respiration 20, temperature 36.4, oxygen saturation 94% on room air. SKIN: Warm and dry. No rash. HEENT: No mucosal abnormality. NECK: No adenopathy, no thyromegaly. No JVD. HEART: Regular heart sounds. LUNGS: Clear. ABDOMEN: Soft, nontender. BACK: No spinal tenderness. EXTREMITIES: Bilateral ankle edema. No clubbing or cyanosis. ASSESSMENT: 1. Urinary tract infection. 2. Bacteremia. 3. Coronary artery disease. 4. Paroxysmal atrial fibrillation. 5. Fluid retention. 6. Type 2 diabetes mellitus. PLAN: 1. Overall, her condition has improved. She remains afebrile. She is ambulating. Not having any dizziness. Tolerating her diet without any problem. 2. She has been on Rocephin. 3. Was able to discharge her today. She was switched to oral Keflex. She will resume all her other medications. 4. I will follow up with her in the office in 1 week.
--- NOTE | 2016-07-17 00:50 | DISCHARGE SUMMARY ---
DISCHARGE DIAGNOSES: 1. Bacteremia secondary to Escherichia coli. 2. Urinary tract infection secondary to Escherichia coli. 3. Orthostatic hypotension. 4. Coronary artery disease. 5. Arterial hypertension, treated. 6. Hyperlipidemia. 7. Hypothyroidism. 8. Dehydration. 9. Paroxysmal atrial fibrillation. 10. Type 2 diabetes mellitus. DISCHARGE MEDICATIONS: Included: 1. Cephalexin 500 mg 3 times a day. 2. Amlodipine 5 mg daily. 3. Furosemide 20 mg daily. 4. Meclizine 12.5 mg 3 times a day. 5. Zofran ODT 8 mg every 6 hours as needed for nausea. 6. MiraLax 17 grams daily. 7. Potassium chloride 10 mEq twice a day. 8. Amiodarone 200 mg daily. 9. Aspirin 81 mg daily. 10. Atorvastatin 40 mg daily. 11. Glipizide 5 mg twice a day. 12. Levothyroxine 125 mcg daily. 13. Lisinopril 10 mg daily. 14. Lorazepam 0.5 mg twice a day as needed for anxiety. 15. Multivitamin 1 daily. 16. Nitrostat 0.4 mg sublingually if needed for chest pain. 17. Xarelto 20 mg daily. Mrs. Haq is an 85-year-old female admitted through the Emergency Room with multiple problems including fever and chills, evidence of urinary tract infection, dehydration, and orthostatic hypotension. The patient with multiple medical problems as noted above. She has been at home. She has been feeling sick for at least 2-3 days. She has been having recurrent fever and chills. Feeling very weak. Poor appetite. Very tired. She had multiple falls. The patient was evaluated in the Emergency Room. She was admitted for further evaluation and treatment. PAST MEDICAL HISTORY, SOCIAL HISTORY AND FAMILY HISTORY: All as noted. ALLERGIES: 1. ADHESIVE TAPE. 2. CIPROFLOXACIN. 3. PENICILLIN. 4. MORPHINE SULFATE. MEDICATIONS ON ADMISSION: All as noted on her home medication list. PHYSICAL EXAMINATION AND ADMISSION LABORATORY TESTS: All as noted. HOSPITAL COURSE: The patient was admitted to medical bed. Resuscitation level 1. All her laboratory tests were ordered. Cultures were done. She was started on IV Rocephin. Started on IV fluid. Her laboratory tests were monitored. Her WBC count returned to normal. Her cultures were positive. Urine culture and both blood cultures grew E. coli. She had bacteremia secondary to her urinary tract infection. Her renal function also improved. She was tolerating her medications, tolerating her diet. Eventually, we started her on physical and occupational therapy. She remained afebrile. Her WBC count came back to normal. Her E. coli was sensitive to Rocephin. She was tolerating her therapy. Her appetite started to improve. She was also ambulating in the hallway. The patient has a HISTORY OF ALLERGY TO PENICILLIN, but she did tolerate the Rocephin without any problem. Her cardiac status remained stable. She had no congestive heart failure. As her condition improved, arrangements were made for her to be discharged home with home health nursing. Medications as noted above. Follow up in the office in 1 week.
--- NOTE | 2016-07-17 06:40 | EDITING REQUIRED CODING QUERY ---
SEPSIS To promote full compliance with coding requirements relating to patient care, physician participation is requested in all cases of soft metals engraver hand uncertainty. Please assist us with the question(s) below: In responding to this query, please exercise your independent professional judgement. The fact that a question is asked does not imply that any particular answer is desired or expected. We appreciate your clarification on this issue. Throughout the medical record, you have clearly documented a localized infection and your patient has clinical evidence of a generalized sepsis or severe sepsis. The term urosepsis is a nonspecific entity and is coded as an UTI. If the patient has sepsis, severe sepsis, from an urinary source or some other source, please clarify in your response below. The medical record reflects the following clinical findings: Patient admitted with UTI ; blood cultures and urine positive for E.Coli. Progress notes mention Sepsis . D/S documents bacteremia. Please check below the diagnosis you were treating during this Inpatient Stay. Thank you! YOSELYN Batista CCS (x )Bacteremia (Nonspecific laboratory finding of bacteria in the blood) Specify Organism () Present on Admission () Not present on admission () Unable to clinically determine ( ) Septicemia (Systemic disease associated with the presence of pathogenic microorganisms in the blood): Specify Organism () Present on Admission () Not present on admission () Unable to clinically determine ( ) Sepsis Specify Organism Specify Associated Condition/Diagnosis () Present on Admission () Not present on admission () Unable to clinically determine ( ) Severe Sepsis (Sepsis associated with acute organ dysfunction) Specify Organism Specify Associated Condition/Diagnosis () Present on Admission () Not present on admission () Unable to clinically determine ( ) Septic Shock (Severe sepsis with acute circulatory failure, unexplained by other causes) () Present on Admission () Not present on admission () Unable to clinically determine ( ) Other, patient has:
== END 2016-07-03 10:14 | disposition home or self-care (01) | DRG 690 ==
LOC: ENRESERVDT → ENRESERVTM → C.EDB 09:41 → C.MED 14:39 → C.MS2W 06-28 10:10
PROVIDERS: ADMIT Internal Medicine; ATTEND Internal Medicine
DX: N39.0 Urinary tract infection, site not specified (principal); R78.81 Bacteremia; N17.9 Acute kidney failure, unspecified; E86.0 Dehydration; I48.0 Paroxysmal atrial fibrillation; I25.10 Atherosclerotic heart disease of native coronary artery without angina pectoris; E11.9 Type 2 diabetes mellitus without complications; I95.1 Orthostatic hypotension; Z95.5 Presence of coronary angioplasty implant and graft; Z96.653 Presence of artificial knee joint, bilateral; E03.9 Hypothyroidism, unspecified; Z88.0 Allergy status to penicillin; E78.00 Pure hypercholesterolemia, unspecified; B96.20 Unspecified Escherichia coli [E. coli] as the cause of diseases classified elsewhere

== ENCOUNTER → 2016-07-17 | Outpatient (CLI) | payer OTHER ==
[~2016-07-17] MED LIST changes: +ANT25 PO; +CEPH500C2 PO; +FURO20TA PO; +LISI-461 PO; +MRLP17 PO; +NRV5 PO; +ONDA8TAB62 SL; +POTA10CA28 PO
== END | disposition home or self-care (01) ==
LOC: C.LABSPEC 12:33
PROVIDERS: ATTEND Internal Medicine
DX: N39.0 Urinary tract infection, site not specified (principal)

== ENCOUNTER → 2016-07-31 | Outpatient (CLI) | payer OTHER ==
[~2016-07-31] MED LIST changes: -LSN5 PO; -METF-384 PO; -OMEP20CA9 PO; -POTA10CA28 PO; -TPRSR50 PO
== END | disposition home or self-care (01) ==
LOC: C.LABSPEC 12:10
PROVIDERS: ATTEND Internal Medicine
DX: N39.0 Urinary tract infection, site not specified (principal)

== ENCOUNTER → 2016-08-06 | Outpatient (CLI) | payer OTHER ==
[2016-08-06 15:03] LABS: BLOOD UREA NITROGEN 50 mg/dl (7-18); CALCIUM 8.9 mg/dl (8.5-10.1); CARBON DIOXIDE 29 mmol/L (21-32); CHLORIDE 105 mmol/L (98-107); GLUCOSE 113 mg/dl (70-99); MAGNESIUM 2.5 mg/dl (1.8-2.4); SODIUM 139 mmol/L (136-145)
== END | disposition home or self-care (01) ==
LOC: C.LABSPEC 14:36
PROVIDERS: ATTEND Internal Medicine
DX: M79.1 Myalgia (principal)

== ENCOUNTER → 2016-08-10 | Outpatient (CLI) | payer OTHER ==
[~2016-08-10] MED LIST changes: -LEVO125T4 PO; +LEVO125T5 PO
[2016-08-10 14:11] LABS: BLOOD UREA NITROGEN 36 mg/dl (7-18); CALCIUM 8.8 mg/dl (8.5-10.1); CARBON DIOXIDE 27 mmol/L (21-32); CHLORIDE 106 mmol/L (98-107); GLUCOSE 168 mg/dl (70-99); POTASSIUM 4.7 mmol/L (3.5-5.1); SODIUM 139 mmol/L (136-145)
[2016-08-10 14:16] LABS: URINE APPEARANCE CLEAR (CLEAR); URINE BILIRUBIN NEG (NEG); URINE COLOR YELLOW; URINE EPITHELIAL CELL AUTO >30 /lpf (0-5); URINE NITRITE NEG (NEG); UROBILINOGEN NEG (NEG)
[2016-08-10 14:17] LABS: MANUAL MICROSCOPIC REQUIRED? NO; REVIEW REQ? NO
== END | disposition home or self-care (01) ==
LOC: C.LABSPEC 12:49
PROVIDERS: ATTEND Internal Medicine
DX: N39.0 Urinary tract infection, site not specified (principal); R94.4 Abnormal results of kidney function studies

== ENCOUNTER → 2016-08-16 | Outpatient (CLI) | payer OTHER ==
[2016-08-16 13:40] LABS: BLOOD UREA NITROGEN 19 mg/dl (7-18); BUN/CREATININE RATIO 16.1 (10-20); CALCIUM 8.6 mg/dl (8.5-10.1); CARBON DIOXIDE 26 mmol/L (21-32); CHLORIDE 107 mmol/L (98-107); GLUCOSE 245 mg/dl (70-99); POTASSIUM 4.4 mmol/L (3.5-5.1); SODIUM 140 mmol/L (136-145)
== END | disposition home or self-care (01) ==
LOC: C.LABSPEC 12:32
PROVIDERS: ATTEND Internal Medicine
DX: N28.9 Disorder of kidney and ureter, unspecified (principal)

== ENCOUNTER → 2016-09-10 | Outpatient (CLI) | payer OTHER ==
--- NOTE | 2016-09-10 10:45 | DIAGNOSTIC IMAGING REPORT ---
EXAMINATION: RENAL ULTRASOUND CLINICAL HISTORY: Urinary tract infection COMPARISON STUDY: CT scan dated 01/30/2015 FINDINGS: The right kidney measures 8.9. The left kidney measures 12.2. There is a possible left duplex collecting system. There is no evidence of hydronephrosis. There are no renal masses. The bladder is mildly thick-walled with multiple trabeculations/diverticula. IMPRESSION : 1. Slight discrepancy in renal size. No renal masses identified. No evidence of hydronephrosis 2. Mild bladder wall thickening with multiple trabeculations/diverticula. Electronically signed by: Isaías Monaco M.D. 09/10/2016 10:44 AM Dictated Date/Time: 09/10/2016 10:38 AM
== END | disposition home or self-care (01) ==
LOC: C.ULTR 10:00
PROVIDERS: ATTEND Urology
DX: N39.0 Urinary tract infection, site not specified (principal); N32.3 Diverticulum of bladder; N32.89 Other specified disorders of bladder

== ENCOUNTER → 2017-02-14 | Outpatient (CLI) | payer OTHER ==
[~2017-02-14] MED LIST changes: -CEPH500C2 PO; +LEVO125T4 PO; -LEVO125T5 PO; -ONDA8TAB62 SL
[2017-02-14 13:59] LABS: BLOOD UREA NITROGEN 29 mg/dl (7-18); CALCIUM 8.9 mg/dl (8.5-10.1); CARBON DIOXIDE 30 mmol/L (21-32); CHLORIDE 104 mmol/L (98-107); GLUCOSE 109 mg/dl (70-99); POTASSIUM 3.9 mmol/L (3.5-5.1); SODIUM 140 mmol/L (136-145)
[2017-02-14 14:10] LABS: CHOLESTEROL 117 mg/dl (0-200); CHOLESTEROL/HDL RATIO 2.5; HDL CHOLESTEROL 46 mg/dl; TRIGLYCERIDES 101 mg/dl (0-150); VERY LOW DENSITY LIPOPROT CALC 20 mg/dl
== END | disposition home or self-care (01) ==
LOC: C.LABSPEC 12:14
PROVIDERS: ATTEND Internal Medicine
DX: I48.0 Paroxysmal atrial fibrillation (principal); I25.10 Atherosclerotic heart disease of native coronary artery without angina pectoris; E11.9 Type 2 diabetes mellitus without complications; I10 Essential (primary) hypertension; E03.9 Hypothyroidism, unspecified

== ENCOUNTER → 2017-06-14 | Outpatient (CLI) | payer OTHER ==
[~2017-06-14] MED LIST changes: -LEVO125T4 PO; +LEVO125T5 PO
[2017-06-14 14:15] LABS: ALBUMIN 3.4 gm/dl (3.4-5.0); ALT/SGPT 29 U/L (12-78); AST/SGOT 24 U/L (15-37); BLOOD UREA NITROGEN 24 mg/dl (7-18); CARBON DIOXIDE 30 mmol/L (21-32); CREATININE 1.12 mg/dl (0.60-1.20); GLUCOSE 109 mg/dl (70-99); POTASSIUM 3.7 mmol/L (3.5-5.1); SODIUM 139 mmol/L (136-145)
[2017-06-14 14:25] LABS: ALKALINE PHOSPHATASE 87 U/L (45-117); LDL CHOLESTEROL (DIRECT) 73 mg/dl; TOTAL PROTEIN 7.3 gm/dl (6.4-8.2)
[2017-06-14 14:42] LABS: HEMOGLOBIN A1C 7.4 % (4.5-5.6)
== END | disposition home or self-care (01) ==
LOC: C.LABSPEC 13:14
PROVIDERS: ATTEND Internal Medicine
DX: I25.10 Atherosclerotic heart disease of native coronary artery without angina pectoris (principal); I10 Essential (primary) hypertension; E11.9 Type 2 diabetes mellitus without complications; E78.5 Hyperlipidemia, unspecified; E03.9 Hypothyroidism, unspecified